=== PATIENT | female | born 1995 | race Caucasian/White ===

== ENCOUNTER 2022-04-06 14:36 | Emergency (ER) | payer OTHER, SELFPAY ==
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
[2022-04-06 14:49] VITALS: BP 139/104; PULSE 105; RESP 18; TEMP 36.7; O2SAT 100
== END 2022-04-06 15:32 | disposition home or self-care (01) ==
PROVIDERS: Emergency Provider Nurse Practitioner Family
DX: S90.32XA Contusion of left foot, initial encounter (principal); X58.XXXA Exposure to other specified factors, initial encounter; Y99.0 Civilian activity done for income or pay; J45.909 Unspecified asthma, uncomplicated; M79.7 Fibromyalgia; F41.9 Anxiety disorder, unspecified; F31.9 Bipolar disorder, unspecified
CPT/HCPCS: 73630; 99213; G0463

== ENCOUNTER 2023-03-04 11:42 | Emergency (ER) | payer OTHER, SELFPAY ==
--- NOTE | ~2023-03-04 | XR_ITS ---
EXAMINATION: XR hand RT min 3V DATE: 03/04/2023 12:32 INDICATION: Right hand injury. TECHNIQUE: 3 views of right hand were obtained. COMPARISON: None. FINDINGS: Bone alignment is normal. No fracture. Joint spaces are normal. IMPRESSION: 1. Normal right hand. Reviewed, dictated and finalized at location A. IMPRESSION: 1. Normal right hand.
--- NOTE | ~2023-03-04 | XR_ITS ---
EXAMINATION: XR wrist RT min 3V DATE: 03/04/2023 12:33 INDICATION: Right wrist injury. TECHNIQUE: 4 views of right wrist were obtained. COMPARISON: None. FINDINGS: Bone alignment is normal. No fracture. Joint spaces are normal. IMPRESSION: 1. Normal right wrist. Reviewed, dictated and finalized at location A. IMPRESSION: 1. Normal right wrist.
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
[2023-03-04 12:04] VITALS: BP 138/89; PULSE 94; RESP 20; TEMP 36.7; O2SAT 98
== END 2023-03-04 12:51 | disposition home or self-care (01) ==
PROVIDERS: Emergency Provider Nurse Practitioner Family
DX: S63.501A Unspecified sprain of right wrist, initial encounter (principal); S66.911A Strain of unspecified muscle, fascia and tendon at wrist and hand level, right hand, initial encounter; W19.XXXA Unspecified fall, initial encounter; J45.909 Unspecified asthma, uncomplicated; M79.7 Fibromyalgia; F41.9 Anxiety disorder, unspecified; F31.9 Bipolar disorder, unspecified
CPT/HCPCS: 73110; 73130; 99213; G0463

== ENCOUNTER 2024-11-13 14:27 | Emergency (ER) | payer OTHER, SELFPAY ==
--- NOTE | 2024-11-13 14:29 | ED_ITS ---
HPI - Skin/Abscess/Foreign Bdy General Chief complaint: Skin/Abscess/Foreign Body Stated complaint: stitches possible infection Time Seen by Provider: 11/13/24 14:49 Source: patient and RN notes reviewed Mode of arrival: ambulatory Limitations: no limitations History of Present Illness HPI narrative: 28-year-old female presents with concern for suture removal to her right forearm. Reports 2 weeks ago she had stitches placed after being bit by a dog. Reports she was concern for infection so she went to the ER twice and had some of the sutures removed and was treated with antibiotics for 5 days. Reports she finished antibiotics and would like the rest of the sutures removed. Reports a small amount of drainage from an open area of the wound. MD complaint: other (Suture removal) Related Data Home Medications ?Medication ?Instructions ?Recorded ?Confirmed ?Last Taken ?Type albuterol sulfate 90 mcg/actuation 90 mcg inhalation DIRECTED 04/06/22 03/04/23 Unknown History aerosol inhaler bupropion HCl 150 mg 24 hr tablet, 150 mg PO DIRECTED 04/06/22 03/04/23 Unknown History extended release bupropion HCl 300 mg 24 hr tablet, 300 mg PO DIRECTED 04/06/22 03/04/23 Unknown History extended release buspirone 10 mg tablet 10 mg DIRECTED 04/06/22 03/04/23 Unknown History lithium carbonate 300 mg 300 mg PO DIRECTED 04/06/22 03/04/23 Unknown History tablet,extended release prazosin 2 mg capsule 2 mg DIRECTED 04/06/22 03/04/23 Unknown History quetiapine 400 mg tablet 400 mg DIRECTED 04/06/22 03/04/23 Unknown History norethindrone 1 mg-ethinyl tablet 11/13/24 Unknown History estradiol 20 mcg (21)-iron 75 mg (7) tablet ([place] Fe 06/12 (28)) Allergies Allergy/AdvReac Type Severity Reaction Status Date / Time No Known Allergies Allergy Verified 03/04/23 12:19 Review of Systems Review of Systems: CONSTITUTIONAL: Denies malaise, chills, sweats, or fever. SKIN: Reports sutures placed and a dog bite on her right arm. Reports some purulence drainage. MUSCULOSKELETAL: Denies muscle skeletal pain NEUROLOGIC: Denies numbness, weakness All systems reviewed & are unremarkable except as noted in HPI and below PMFSH Comments At time of signature, agree with nursing past medical, surgical, social and family history. There is no relevant family history pertinent to the presenting complaint Exam Narrative: GENERAL: Well-appearing, well-nourished, and in no acute distress. HEAD: Normocephalic, atraumatic. EYES: PERRLA, conjunctivae clear, and EOMI. ENT: Mucous membranes moist. Oropharynx without edema, erythema or lesions. NECK: Supple. No lymphadenopathy CHEST: Clear to auscultation. No respiratory distress. HEART: Regular rate and rhythm. SKIN: Warm, dry. Sutured laceration noted to the right forearm, areas of approximation, there are 2 areas that were not sutured with the wound is slightly open but healing by secondary intention. No purulence drainage visible NEURO: Alert and oriented x3. PSYCH: Normal mood and affect Course Course Emergency Course: Patient is aware of diagnosis, understands and agrees to treatment plan. Anticipatory guidance given. Patient agrees to follow-up as directed and is aware of reasons to seek care at the emergency department. Portions of this record may have been created with voice recognition software Level of Care: Express Care Visit Vital Signs Vital signs: Reviewed. MDM - Skin/Abscess/Foreign Bdy MDM Narrative Medical decision making narrative: Verbal consent was obtained. No erythema, induration, or discharge noted. Thirteen simple interrupted completely removed in a sterile fashion. Patient tolerated procedure well, no complications. Patient advised to look for and return for any signs of infection such as redness, swelling, discharge, or worsening pain. Critical Care Time Critical Care Time Critical Care Time: No Discharge Plan Discharge Clinical Impression: Visit for suture removal, Infected wound Patient Disposition: Home Condition: Stable Instructions: Antibiotic Form, Stitches Removal (ED) Additional Instructions: Take antibiotic as directed AFTER the stitches are removed: Clean your wound as directed. Carefully wash your wound with soap and water. Pat the area dry with a clean towel. Protect your wound. Your wound can swell, bleed, or split open if it is stretched or b umped. You may need to wear a bandage that supports your wound until it is completely healed. How to minimize a scar: After sutures are removed, keep your scar out of the sun. Use sunblock if your w ound is exposed to the sun. You may use OTC silicone pad and/or scar massage with ointment (for 10-15 min a day) after one month. Talk to your doctor if you think you are developing a keloid. Patient Language: Yoruba Prescriptions: New clindamycin HCl 300 mg capsule 300 mg PO Q8H 7 Days Qty: 21 0RF No Action lithium carbonate 300 mg tablet extended release 300 mg PO DIRECTED buspirone 10 mg tablet 10 mg DIRECTED prazosin 2 mg capsule 2 mg DIRECTED bupropion HCl 300 mg tablet extended release 24 hr 300 mg PO DIRECTED quetiapine 400 mg tablet 400 mg DIRECTED albuterol sulfate 90 mcg/actuation HFA aerosol inhaler 90 mcg INHALATION DIRECTED bupropion HCl 150 mg tablet extended release 24 hr 150 mg PO DIRECTED norethindrone-e.estradiol-iron [[place] Fe 06/12 (28)] 1 mg-20 mcg (21)/75 mg (7) tablet Follow-up/Referrals: UNKNOWN,DOCTOR [Non-Staff] - Time of Disposition: 15:13
[2024-11-13 14:32] VITALS: BP 139/92; PULSE 86; RESP 20; TEMP 37.1; O2SAT 100
== END 2024-11-13 15:18 | disposition home or self-care (01) ==
PROVIDERS: Emergency Provider Nurse Practitioner
DX: Z48.02 Encounter for removal of sutures (principal); S51.801A Unspecified open wound of right forearm, initial encounter; L08.9 Local infection of the skin and subcutaneous tissue, unspecified; W54.0XXA Bitten by dog, initial encounter
CPT/HCPCS: 99213; G0463